=== PATIENT | female | born 2000 | race Two or more races ===

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

== ENCOUNTER 2022-09-02 17:48 | Emergency (ER) | payer OTHER ==
[~2022-09-02] VITALS: Ht 154.9 cm; Wt 93.4 kg
[~2022-09-02 17:48] MED LIST changes: +BACTRIM DS TAB1 EACH PO; +MUPIROCIN15 GM TOP
[2022-09-02] MEDS ORDERED: PROAIR RESPICL90 MCG IH (20:19)
[2022-09-02] MEDS ORDERED: ORAPRED ODT30 MG PO (20:19)
[2022-09-02] MEDS ORDERED: ZITHROMAX200 MG PO (20:19)
== END 2022-09-02 20:38 | disposition home or self-care (01) ==
LOC: ER 17:48 → EMR PED 17:50
DX: J20.9 Acute bronchitis, unspecified (principal); Z20.822 Contact with and (suspected) exposure to COVID-19; Z91.018 Allergy to other foods

== ENCOUNTER 2023-04-20 15:33 | Emergency (ER) | payer OTHER ==
[~2023-04-20] VITALS: Ht 152.4 cm; Wt 95.3 kg
[~2023-04-20 15:33] MED LIST changes: +ORAPRED ODT30 MG PO; +PROAIR RESPICL90 MCG IH; +ZITHROMAX200 MG PO
== END 2023-04-20 18:25 | disposition home or self-care (01) ==
LOC: EMR PED 15:33
DX: S83.8X1A Sprain of other specified parts of right knee, initial encounter (principal); X58.XXXA Exposure to other specified factors, initial encounter; Y93.41 Activity, dancing; Y92.89 Other specified places as the place of occurrence of the external cause; Y99.8 Other external cause status; Z91.018 Allergy to other foods

== ENCOUNTER 2023-11-10 09:39 | Emergency (ER) | payer OTHER ==
[~2023-11-10] VITALS: Ht 154.9 cm; Wt 97.5 kg
[2023-11-10] MEDS ORDERED: BENZONATATE 100 MG CAPSULE PO ONE (10:30)
[2023-11-10] MEDS ORDERED: GUAIFENESIN 200 MG/10 ML BLIST.PACK PO ONE (10:30)
[2023-11-10] MEDS ORDERED: DEXAMETHASONE SODIUM PHOSPHATE 4 MG/ML VIAL IM ONE (10:30)
[2023-11-10 11:17] LABS: HEMATOCRIT 39.2 % (36.0-45.00); HEMOGLOBIN 13.1 g/dL (12.0-15.00); MEAN CELL VOLUME 83.3 fL (80.00-100.00); MEAN CORPUSCULAR HEMOGLOBIN 27.9 pg (27.00-32.0); MEAN CORPUSCULAR HGB CONC 33.4 g/dl (32.0-36.0); PLATELET COUNT 350 K/uL (150-450); RED CELL DISTRIBUTION WIDTH 13.7 % (11.5-14.5)
== END 2023-11-10 12:56 | disposition home or self-care (01) ==
LOC: ER 09:39
PROVIDERS: General Practice
DX: J06.9 Acute upper respiratory infection, unspecified (principal); Z91.018 Allergy to other foods; Z20.822 Contact with and (suspected) exposure to COVID-19

== ENCOUNTER 2023-12-01 09:13 | Emergency (ER) | payer OTHER ==
[~2023-12-01] VITALS: Ht 154.9 cm; Wt 96.2 kg
[2023-12-01] MEDS ORDERED: BENZONATATE 100 MG CAPSULE PO ONE (10:00)
[2023-12-01] MEDS ORDERED: GUAIFENESIN 600 MG TABLET.SA PO ONE (10:00)
[2023-12-01 10:21] LABS: HEMATOCRIT 40.3 % (36.0-45.00); HEMOGLOBIN 13.3 g/dL (12.0-15.00); MEAN CELL VOLUME 83.7 fL (80.00-100.00); MEAN CORPUSCULAR HEMOGLOBIN 27.7 pg (27.00-32.0); MEAN CORPUSCULAR HGB CONC 33.1 g/dl (32.0-36.0); PLATELET COUNT 344 K/uL (150-450); RED BLOOD COUNT 4.81 M/uL (4.00-6.00); RED CELL DISTRIBUTION WIDTH 14.5 % (11.5-14.5)
[2023-12-01] MEDS ORDERED: DEXAMETHASONE SODIUM PHOSPHATE 4 MG/ML VIAL ONE ×2 (12:24→12:25)
[2023-12-01] MEDS ORDERED: DEXAMETHASONE SODIUM PHOSPHATE 4 MG/ML VIAL IM ONE (12:30)
== END 2023-12-01 13:02 | disposition home or self-care (01) ==
LOC: ER 09:15
PROVIDERS: General Practice
DX: J06.9 Acute upper respiratory infection, unspecified (principal); Z91.018 Allergy to other foods; Z20.822 Contact with and (suspected) exposure to COVID-19
CPT/HCPCS: 36415; 71046; 96372; 99283; J1100

== ENCOUNTER 2024-01-28 15:16 | Emergency (ER) | payer OTHER ==
[~2024-01-28] VITALS: Ht 152.4 cm; Wt 96.2 kg
== END 2024-01-28 17:33 | disposition home or self-care (01) ==
LOC: ER 15:16
DX: F41.0 Panic disorder [episodic paroxysmal anxiety] (principal)

== ENCOUNTER 2024-02-29 15:21 | Emergency (ER) | payer OTHER ==
[~2024-02-29] VITALS: Ht 154.9 cm; Wt 96.2 kg
[2024-02-29] MEDS ORDERED: GUAIFENESIN/DEXTROMETHORPHAN 10ML BLIST.PACK PO ONE (18:00)
[2024-02-29 18:28] LABS: HEMATOCRIT 42.4 % (36.0-45.00); HEMOGLOBIN 13.7 g/dL (12.0-15.00); MEAN CELL VOLUME 85.1 fL (80.00-100.00); MEAN CORPUSCULAR HEMOGLOBIN 27.6 pg (27.00-32.0); MEAN CORPUSCULAR HGB CONC 32.4 g/dl (32.0-36.0); PLATELET COUNT 277 K/uL (150-450); RED BLOOD COUNT 4.98 M/uL (4.00-6.00); RED CELL DISTRIBUTION WIDTH 13.1 % (11.5-14.5)
[2024-02-29] MEDS ORDERED: OSEL75CA PO (18:58)
[2024-02-29] MEDS ORDERED: GILTUSS COUGH-118 M1 PO (18:58)
== END 2024-02-29 18:59 | disposition home or self-care (01) ==
LOC: ER 15:23
PROVIDERS: Preventive Medicine Public Health & General Preventive Medicine
DX: J10.1 Influenza due to other identified influenza virus with other respiratory manifestations (principal); Z20.822 Contact with and (suspected) exposure to COVID-19

== ENCOUNTER 2024-04-29 08:15 | Emergency (ER) | payer OTHER ==
[~2024-04-29] VITALS: Ht 154.9 cm; Wt 97.5 kg
[~2024-04-29 08:15] MED LIST changes: +GILTUSS COUGH-118 M1 PO; +OSEL75CA PO
[2024-04-29] MEDS ORDERED: BUSPIRONE HCL7.5 MG PO (08:40)
[2024-04-29] MEDS ORDERED: ATARAX50 MG PO (08:41)
[2024-04-29] MEDS ORDERED: DEXAMETHASONE SODIUM PHOSPHATE 4 MG/ML VIAL IM STA (09:12)
[2024-04-29] MEDS ORDERED: DIPHENHYDRAMINE HCL 50 MG/ML VIAL 1ML IM STA (09:13)
[2024-04-29] MEDS ORDERED: DEXAMETHASONE SODIUM PHOSPHATE 4 MG/ML VIAL ONE (09:25)
[2024-04-29] MEDS ORDERED: DIPHENHYDRAMINE HCL 50 MG/ML VIAL 1ML ONE (09:25)
== END 2024-04-29 12:23 | disposition home or self-care (01) ==
LOC: ER 08:17
DX: R21 Rash and other nonspecific skin eruption (principal); T78.40XA Allergy, unspecified, initial encounter

== ENCOUNTER 2024-07-05 07:31 | Emergency (ER) | payer OTHER ==
[~2024-07-05] VITALS: Ht 154.9 cm; Wt 95.3 kg
[~2024-07-05 07:31] MED LIST changes: +ATARAX50 MG PO; +BUSPIRONE HCL7.5 MG PO
[2024-07-05] MEDS ORDERED: MORPHINE SULFATE 4 MG/ML VIAL IV STA (10:13)
[2024-07-05] MEDS ORDERED: ONDANSETRON HCL 2 MG/ML VIAL IV ONE (10:15)
[2024-07-05] MEDS ORDERED: ONDANSETRON HCL 2 MG/ML VIAL ONE (10:17)
[2024-07-05 10:37] LABS: HEMATOCRIT 39.8 % (36.0-45.00); HEMOGLOBIN 13.6 g/dL (12.0-15.00); MEAN CELL VOLUME 84.5 fL (80.00-100.00); MEAN CORPUSCULAR HEMOGLOBIN 28.8 pg (27.00-32.0); MEAN CORPUSCULAR HGB CONC 34.1 g/dl (32.0-36.0); PLATELET COUNT 327 K/uL (150-450); RED CELL DISTRIBUTION WIDTH 13.5 % (11.5-14.5)
[2024-07-05 11:00] LABS: PH,URINE 7.5 (5.0-8.0); URINE APPEARANCE Clear; URINE BILIRRUBIN Negative (NEGATIVE); URINE BLOOD Moderate; URINE COLOR Yellow; URINE GLUCOSE Negative (NEGATIVE); URINE KETONE Negative (NEGATIVE); URINE LEUKOCYTE Negative; URINE NITRATE Negative; URINE PROTEIN Negative (NEGATIVE); URINE UROBILINOGEN 0.2 E.U./dl
[2024-07-05 11:03] LABS: URINE EPITHELIAL CELLS 2.5 uL (0.0-38.8); URINE RBC 80.7 uL (0.0-20.8); URINE WBC 3.1 uL (0.0-23.2)
[2024-07-05 11:05] LABS: CALCIUM 9.4 mg/dL (8.5-10.1); CREATININE SERUM 0.56 mg/dL (0.55-1.02); GFR 136.65; POTASSIUM 3.79 mEq/L (3.5-5.1)
== END 2024-07-05 12:50 | disposition home or self-care (01) ==
LOC: ER 07:31
PROVIDERS: General Practice
DX: R10.9 Unspecified abdominal pain (principal); R11.10 Vomiting, unspecified

== ENCOUNTER 2024-10-02 04:18 | Emergency (ER) | payer OTHER ==
[~2024-10-02] VITALS: Ht 154.9 cm; Wt 97.5 kg
[2024-10-02 04:32] VITALS: BP 114/68; O2SAT 100
[2024-10-02] MEDS ORDERED: KETOROLAC TROMETHAMINE 30 MG VIAL IV STA (05:11)
[2024-10-02] MEDS ORDERED: 0.9 % SODIUM CHLORIDE 500 ML IV STA (05:12)
[2024-10-02] MEDS ORDERED: MORPHINE SULFATE 4 MG/ML VIAL IV STA (05:13)
[2024-10-02] MEDS ORDERED: HYOSCYAMINE SULFATE 0.125 MG TAB.SUBL SL ONE (05:15)
[2024-10-02] MEDS ORDERED: HYOSCYAMINE SULFATE 0.125 MG TAB.SUBL ONE (05:27)
[2024-10-02] MEDS ORDERED: KETOROLAC TROMETHAMINE 30 MG VIAL ONE (05:27)
[2024-10-02 06:13] LABS: BASO % 0.3 % (0.1-1.2); EOS # 0.06 (0.04-0.54); EOS % 0.7 % (0.7-7.0); LYMPH # 1.89 (1.18-3.74); LYMPH % 20.9 % (19.3-53.1); MEAN PLATELET VOLUME 9.50 fl (9.4-12.4); MONO # 0.84 (0.24-0.82); MONO % 9.3 % (4.7-12.5); NEUT # 6.20 (1.56-6.13); NEUT % 68.6 % (34.0-71.1); RED CELL DISTRIBUTION WIDTH 12.2 % (11.6-14.4)
[2024-10-02 06:57] LABS: BUN CREA RATIO 22.0 (7.0-25.0); CREATININE SERUM 0.76 mg/dL (0.55-1.02); GFR 95.16; GLUCOSE FASTING 95.0 mg/dL (65-100); OSMOLALITY SERUM 286.0 MOSM/KG (275-295)
== END 2024-10-02 10:05 | disposition home or self-care (01) ==
LOC: ER 04:18
DX: N23 Unspecified renal colic (principal); N20.1 Calculus of ureter

== ENCOUNTER 2024-10-11 07:27 | Emergency (ER) | payer OTHER ==
[~2024-10-11] VITALS: Ht 154.9 cm; Wt 97.5 kg
[2024-10-11] MEDS ORDERED: KETOROLAC TROMETHAMINE 60 MG VIAL IM STA (08:33)
[2024-10-11] MEDS ORDERED: ORPHENADRINE CITRATE 30 MG/ML AMPUL IV STA (08:33)
[2024-10-11] MEDS ORDERED: 0.9 % SODIUM CHLORIDE 1,000 ML IV STA (08:34)
[2024-10-11] MEDS ORDERED: ONDANSETRON HCL 2 MG/ML VIAL IV STA (08:47)
[2024-10-11] MEDS ORDERED: FAMOTIDINE/PF 20 MG/2 ML VIAL IV STA (08:47)
[2024-10-11 09:16] LABS: BASO % 0.3 % (0.1-1.2); EOS # 0.11 (0.04-0.54); EOS % 1.1 % (0.7-7.0); LYMPH # 3.09 (1.18-3.74); LYMPH % 30.4 % (19.3-53.1); MEAN PLATELET VOLUME 9.20 fl (9.4-12.4); MONO # 0.91 (0.24-0.82); MONO % 9.0 % (4.7-12.5); NEUT # 5.98 (1.56-6.13); NEUT % 58.9 % (34.0-71.1); RED CELL DISTRIBUTION WIDTH 11.9 % (11.6-14.4)
[2024-10-11 09:35] LABS: ALT/SGPT 28.0 U/L (12-78); AST/SGOT 19.0 U/L (15-37); BILIRUBIN TOTAL 0.39 mg/dL (0.3-1.2); BUN CREA RATIO 24.0 (7.0-25.0); CREATININE SERUM 1.04 mg/dL (0.55-1.02); GFR 66.26; GLOBULINA 4.3 G/DL (2.4-3.5); GLUCOSE FASTING 87.0 mg/dL (65-100); OSMOLALITY SERUM 289.0 MOSM/KG (275-295)
[2024-10-11 09:44] LABS: URINE APPEARANCE Clear; URINE BILIRRUBIN Negative (NEGATIVE); URINE BLOOD Moderate; URINE COLOR Yellow; URINE GLUCOSE Negative (NEGATIVE); URINE KETONE Trace (NEGATIVE); URINE LEUKOCYTE Negative; URINE NITRATE Negative; URINE PROTEIN Trace (NEGATIVE); URINE UROBILINOGEN 1.0 E.U./dl
[2024-10-11 09:48] LABS: URINE BACTERIA 1288.7 uL (0.0-1933); URINE EPITHELIAL CELLS 41.6 uL (0.0-38.8); URINE RBC 213.9 uL (0.0-20.8); URINE WBC 32.9 uL (0.0-23.2)
[2024-10-11 10:06] LABS: URINE CAST 0.29 uL (0.0-1.40)
[2024-10-11] MEDS ORDERED: MORPHINE SULFATE 4 MG/ML CARTRIDGE IV STA (15:12)
== END 2024-10-11 17:17 | disposition designated cancer center or children's hospital (05) ==
LOC: ER 07:28
PROVIDERS: General Practice
DX: N20.0 Calculus of kidney (principal); R10.9 Unspecified abdominal pain